=== PATIENT | female | born 1980 ===

== ENCOUNTER 2020-09-06 12:57 | Outpatient (CLI) | payer OTHER | END 2020-09-06 12:58 | disposition home or self-care (01) | LOC: DTY/OP 12:57 | PROVIDERS: ATTEND Family Medicine | DX: Z01.419 Encounter for gynecological examination (general) (routine) without abnormal findings (principal); E78.00 Pure hypercholesterolemia, unspecified; R63.4 Abnormal weight loss | CPT/HCPCS: 97802 ==